=== PATIENT | female | born 1965 | race Caucasian/White ===

== ENCOUNTER → 2020-10-29 | Outpatient (CLI) | payer MEDICARE, SELFPAY ==
[~2020-10-29] MED LIST: ACETAMINOPHEN325 MG PO; AMLODIPINE BESY10 MG PO; BUTALB-ACETAMI1 EAC1 PO; CLEOCIN HCL300 MG PO; CYCLOBENZAPRINE10 MG PO; FLORANEX TABLE1 EACH PO; GABAPENTIN400 MG PO; LISINOPRIL10 MG PO; LISINOPRIL5 MG PO; MELATONIN5 M2 PO; METOPROLOL TART25 MG PO; PRILOSEC OTC20 MG PO; ROPINIROLE HCL0.5 MG PO; SENNA S TABLET1 EACH PO; SINGULAIR10 MG PO; TIZANIDINE HCL4 MG PO; VITAMIN D325 MCG PO; WARFARIN SODIUM4 MG PO
== END ==
LOC: CT 11:46
DX: N28.89 Other specified disorders of kidney and ureter (principal)
CPT/HCPCS: 36415; 74170; 82565; 84520; Q9967

== ENCOUNTER → 2021-05-07 | Outpatient (CLI) | payer MEDICARE | LOC: CT 10:21 | DX: N28.89 Other specified disorders of kidney and ureter (principal) | CPT/HCPCS: 36415; 74170; 82565; Q9967 ==

== ENCOUNTER → 2021-10-07 | Outpatient (CLI) | payer MEDICARE | LOC: CT 12:19 | DX: N28.89 Other specified disorders of kidney and ureter (principal) | CPT/HCPCS: 36415; 74170; 82565; Q9967 ==

== ENCOUNTER 2021-11-12 11:29 | Emergency (ER) | payer MEDICARE ==
[2021-11-12 12:43] LABS: HEMOGLOBIN 13.2 gm/dl (12.3-15.3); RED BLOOD COUNT 4.42 M/UL (4.00-5.10); WHITE BLOOD COUNT 3.9 K/UL (4.5-11.0)
[2021-11-12 13:11] LABS: BUN/CREATININE RATIO 13 (0-10)
[2021-11-12] MEDS ORDERED: MACROBID 100 M100 MG PO (14:04)
== END 2021-11-12 14:30 | disposition home or self-care (01) ==
LOC: ER1 11:29
PROVIDERS: Physician Assistant
DX: U07.1 COVID-19 (principal); N39.0 Urinary tract infection, site not specified; Z88.0 Allergy status to penicillin; Z88.5 Allergy status to narcotic agent; Z88.6 Allergy status to analgesic agent; Z88.1 Allergy status to other antibiotic agents
CPT/HCPCS: 0240U; 71045; 80053; 81001; 82550; 82553; 83605; 83615; 83874; 84484; 85025; 85610; 87040; 87081; 87880; 93005; 99284; J7030

== ENCOUNTER 2021-11-19 11:43 | Inpatient (IN) | payer MEDICARE ==
[~2021-11-19] VITALS: Ht 170.2 cm; Wt 90.7 kg
[~2021-11-19 11:43] MED LIST changes: -BUDESONIDE0.5 MG/2 M NEB; -BUSPIRONE HCL5 MG PO; -CLONIDINE HCL0.1 MG PO; -DECADRON6 MG PO; -DOXYCYCLINE HY100 M2 PO; -IPRAT-ALBUT 0.5-3 ML NEB; -K-TAB ER20 MEQ PO; -LISINOPRIL20 MG PO; -LORATADINE10 MG PO; -LYRICA100 MG PO; -MECLIZINE HCL25 MG PO; -PROAIR DIGIHAL90 MCG INH; -TOPROL XL50 MG PO
[2021-11-19 13:36] LABS: RED BLOOD COUNT 4.78 M/UL (4.00-5.10)
[2021-11-19 13:52] LABS: BUN/CREATININE RATIO 14 (0-10)
[2021-11-19] MEDS ORDERED: LISINOPRIL20 MG PO (15:01)
[2021-11-19] MEDS ORDERED: LYRICA100 MG PO (15:04)
[2021-11-19] MEDS ORDERED: CLONIDINE HCL0.1 MG PO (15:05)
[2021-11-19] MEDS ORDERED: BUSPIRONE HCL5 MG PO (15:05)
[2021-11-19] MEDS ORDERED: MECLIZINE HCL25 MG PO (15:06)
[2021-11-19] MEDS ORDERED: TOPROL XL50 MG PO (15:06)
[2021-11-19] MEDS ORDERED: LORATADINE10 MG PO (15:06)
[2021-11-19] MEDS ORDERED: TIZANIDINE HCL4 MG PO (15:07)
[2021-11-19] MEDS ORDERED: PROAIR DIGIHAL90 MCG INH (15:08)
[2021-11-20 05:04] LABS: HEMOGLOBIN 14.5 gm/dl (12.3-15.3); RED BLOOD COUNT 4.99 M/UL (4.00-5.10)
[2021-11-20 05:05] LABS: WHITE BLOOD COUNT 3.8 K/UL (4.5-11.0)
[2021-11-20 06:56] LABS: BUN/CREATININE RATIO 16 (0-10)
[2021-11-21 04:52] LABS: HEMOGLOBIN 13.5 gm/dl (12.3-15.3); RED BLOOD COUNT 4.64 M/UL (4.00-5.10); WHITE BLOOD COUNT 3.8 K/UL (4.5-11.0)
[2021-11-21 05:01] LABS: BUN/CREATININE RATIO 25 (0-10)
[2021-11-22 04:41] LABS: HEMOGLOBIN 13.2 gm/dl (12.3-15.3); RED BLOOD COUNT 4.55 M/UL (4.00-5.10); WHITE BLOOD COUNT 3.9 K/UL (4.5-11.0)
[2021-11-22 04:59] LABS: BUN/CREATININE RATIO 28 (0-10)
[2021-11-23 05:56] LABS: HEMOGLOBIN 13.9 gm/dl (12.3-15.3); RED BLOOD COUNT 4.78 M/UL (4.00-5.10); WHITE BLOOD COUNT 4.5 K/UL (4.5-11.0)
[2021-11-23 06:11] LABS: BUN/CREATININE RATIO 28 (0-10)
[2021-11-23] MEDS ORDERED: DECADRON6 MG PO (14:15)
[2021-11-23] MEDS ORDERED: IPRAT-ALBUT 0.5-3 ML NEB (14:15)
[2021-11-23] MEDS ORDERED: DOXYCYCLINE HY100 M2 PO (14:27)
[2021-11-23] MEDS ORDERED: BUDESONIDE0.5 MG/2 M NEB (14:27)
[2021-11-23] MEDS ORDERED: K-TAB ER20 MEQ PO (14:42)
== END 2021-11-23 19:21 | disposition home or self-care (01) | DRG 177 ==
LOC: ER1 11:43 → CDU 14:29 → MED SURG 4 14:29
PROVIDERS: Emergency Medicine; Physician Assistant Medical; ADMIT Internal Medicine
PROC: 8E0ZXY6 Isolation (ICD-10-PCS; principal; 2021-11-19)
PROC: XW033E5 Introduction of Remdesivir Anti-infective into Peripheral Vein, Percutaneous Approach, New Technology Group 5 (ICD-10-PCS; 2021-11-19)
PROC: 3E0333Z Introduction of Anti-inflammatory into Peripheral Vein, Percutaneous Approach (ICD-10-PCS; 2021-11-20)
DX: U07.1 COVID-19 (principal); J96.01 Acute respiratory failure with hypoxia; J12.82 Pneumonia due to coronavirus disease 2019; I69.854 Hemiplegia and hemiparesis following other cerebrovascular disease affecting left non-dominant side; J45.909 Unspecified asthma, uncomplicated; I95.1 Orthostatic hypotension; I10 Essential (primary) hypertension; E87.6 Hypokalemia; K76.0 Fatty (change of) liver, not elsewhere classified; Z99.3 Dependence on wheelchair; Z79.01 Long term (current) use of anticoagulants; Z88.1 Allergy status to other antibiotic agents; Z88.0 Allergy status to penicillin; Z88.8 Allergy status to other drugs, medicaments and biological substances; Z98.890 Other specified postprocedural states; Z86.718 Personal history of other venous thrombosis and embolism
CPT/HCPCS: 36415; 36600; 71045; 80048; 80053; 82550; 82553; 82803; 83735; 84484; 85025; 85027; 85379; 85610; 85730; 93005; 94640; 94664; 94760; 96374; 96375; 97110; 97161; 97166; 99285; J0248; J1100; J1650; J2405; J7030; Q9967

== ENCOUNTER → 2021-11-19 | Outpatient (CLI) | payer MEDICARE ==
[~2021-11-19] VITALS: Ht 170.2 cm; Wt 90.7 kg
[~2021-11-19] MED LIST changes: -ACETAMINOPHEN325 MG PO; +AMLODIPINE BES2.5 MG PO; -AMLODIPINE BESY10 MG PO; +BUDESONIDE0.5 MG/2 M NEB; +BUSPIRONE HCL5 MG PO; +CLONIDINE HCL0.1 MG PO; +DECADRON6 MG PO; +DOXYCYCLINE HY100 M2 PO; +IPRAT-ALBUT 0.5-3 ML NEB; +K-TAB ER20 MEQ PO; +LISINOPRIL20 MG PO; +LORATADINE10 MG PO; +LYRICA100 MG PO; +MACROBID 100 M100 MG PO; +MECLIZINE HCL25 MG PO; +OMEPRAZOLE20 MG PO; -PRILOSEC OTC20 MG PO; +PROAIR DIGIHAL90 MCG INH; +TOPROL XL50 MG PO; +TYLENOL EXTRA500 MG PO; -WARFARIN SODIUM4 MG PO; +WARFARIN SODIUM5 MG PO
== END ==
LOC: EROP 10:37
DX: U07.1 COVID-19 (principal); Z23 Encounter for immunization; I10 Essential (primary) hypertension; Z86.73 Personal history of transient ischemic attack (TIA), and cerebral infarction without residual deficits

== ENCOUNTER → 2021-12-08 | Outpatient (CLI) | payer MEDICARE ==
[~2021-12-08] MED LIST changes: +BUDESONIDE0.5 MG/2 M NEB; +BUSPIRONE HCL5 MG PO; +CLONIDINE HCL0.1 MG PO; +DECADRON6 MG PO; +DOXYCYCLINE HY100 M2 PO; +IPRAT-ALBUT 0.5-3 ML NEB; +K-TAB ER20 MEQ PO; +LISINOPRIL20 MG PO; +LORATADINE10 MG PO; +LYRICA100 MG PO; +MECLIZINE HCL25 MG PO; +PROAIR DIGIHAL90 MCG INH; +TOPROL XL50 MG PO
== END ==
LOC: ECHO 09:45
DX: R00.2 Palpitations (principal)
CPT/HCPCS: ECHO; 93306

== ENCOUNTER → 2021-12-10 | Outpatient (CLI) | payer MEDICARE | LOC: KOH-I 11:09 | DX: R06.02 Shortness of breath (principal); I95.9 Hypotension, unspecified; I10 Essential (primary) hypertension; R91.8 Other nonspecific abnormal finding of lung field; Z86.16 Personal history of COVID-19 | CPT/HCPCS: 71046 ==

== ENCOUNTER → 2022-03-18 | Outpatient (CLI) | payer MEDICARE | LOC: EXRD 10:39 | DX: N85.00 Endometrial hyperplasia, unspecified (principal); R93.89 Abnormal findings on diagnostic imaging of other specified body structures | CPT/HCPCS: 76856 ==

== ENCOUNTER → 2022-03-29 | Outpatient (CLI) | payer MEDICARE | LOC: EXRD 03-16 08:30 | DX: R10.84 Generalized abdominal pain (principal); K76.0 Fatty (change of) liver, not elsewhere classified | CPT/HCPCS: 76705 ==

== ENCOUNTER → 2022-04-21 | Outpatient (CLI) | payer MEDICARE ==
[~2022-04-21] MED LIST changes: +BUTALB-ACETAMI1 EACH PO; +MELATONIN5 MG PO; +PROTONIX20 MG PO; +VITAMIN D3125 MC1 PO
== END ==
LOC: CT 11:42
DX: N28.89 Other specified disorders of kidney and ureter (principal)
CPT/HCPCS: 36415; 74170; 82565; 84520; Q9967

== ENCOUNTER → 2022-04-22 | Day surgery (SDC) | payer MEDICARE | END | disposition home or self-care (01) | LOC: OR 08:15 | DX: Z12.11 Encounter for screening for malignant neoplasm of colon (principal); J45.909 Unspecified asthma, uncomplicated; F32.A Depression, unspecified; I10 Essential (primary) hypertension; Z87.891 Personal history of nicotine dependence; Z88.5 Allergy status to narcotic agent; Z88.0 Allergy status to penicillin; Z88.2 Allergy status to sulfonamides; Z79.899 Other long term (current) drug therapy | CPT/HCPCS: J2704 ==